=== PATIENT | female | born 1950 | race Hispanic/Latino ===

== ENCOUNTER → 2018-10-09 | Outpatient (CLI) | payer OTHER | END | disposition home or self-care (01) | LOC: OIH 12:24 | PROVIDERS: ATTEND Internal Medicine | DX: Z13.6 Encounter for screening for cardiovascular disorders (principal) | CPT/HCPCS: 75571 ==

== ENCOUNTER 2020-10-01 07:16 | Day surgery (SDC) | payer MEDICARE ==
[2020-09-28 12:13] LABS: BASOPHILS % (AUTO) 0.6 % (0.0-5.0); EOSINOPHILS % (AUTO) 3.1 % (0.0-8.0); HEMATOCRIT 41.8 % (36-48); LYMPHOCYTES % (AUTO) 28.3 % (21.0-51.0); MEAN CORPUSCULAR HEMOGLOBIN 30.2 pg (27.0-33.0); MEAN CORPUSCULAR VOLUME 91.5 fL (79-99); MONOCYTES % (AUTO) 8.9 % (3.0-13.0); NEUTROPHILS % (AUTO) 58.8 % (40.0-77.0); PLATELET COUNT (AUTO) 294 K/uL (130-400); RED BLOOD CELL COUNT(AUTO) 4.57 MIL/uL (4.00-5.50); RED CELL DISTRIBUTION WIDTH 13.5 % (11.0-15.5); WHITE BLOOD COUNT (AUTO) 6.9 K/uL (4.8-10.8)
[2020-09-28 12:27] LABS: CREATININE 0.8 mg/dL (0.5-1.5); POTASSIUM 4.2 mmol/L (3.5-5.1)
[2020-10-01] VITALS (16 sets, daily range): BP systolic 105–137; BP diastolic 38–74
[~2020-10-01] VITALS: Ht 154.9 cm; Wt 60.0 kg
[~2020-10-01 07:16] MED LIST: AMLO-511 PO; ROSU20TA31 PO; TAMS-1 PO; [UNRECOGNIZED DRUG - CODE] PO; prevagen PO; vitamin d3 PO
[2020-10-01] MEDS: CEFTRIAXONE 1G VIAL IVP SCH ×3 (07:30→12:31)
[2020-10-01] MEDS ORDERED: LACTATED RINGERS 1000ML 1,000 ML IV ONE (07:31)
[2020-10-01] MEDS ORDERED: IOHEXOL-350 50ML VIAL IV ONE (07:54)
[2020-10-01] MEDS ORDERED: ONDANSETRON 4MG INJ ONE (09:38)
[2020-10-01] MEDS ORDERED: GLYCOPYRROLATE 1 MG/5 ML SYRINGE ONE (09:38)
[2020-10-01] MEDS ORDERED: SUCCINYLCHOLINE 200MG/10ML SYR ONE ×2 (09:38→09:39)
[2020-10-01] MEDS ORDERED: NEOSTIGMINE 5MG/5ML SYR IV ONE (09:38)
[2020-10-01] MEDS ORDERED: LIDOCAINE PF 100MG/5ML (2%) SYRINGE 5ML ONE ×2 (09:38→09:39)
[2020-10-01] MEDS ORDERED: DEXAMETHASONE SOD PHOSPHATE 10MG/ML 1ML VIAL ONE (09:38)
[2020-10-01] MEDS ORDERED: PROPOFOL 10 MG/ML 20ML VIAL IV ONE (09:38)
[2020-10-01] MEDS ORDERED: FENTANYL CITRATE PF 50 MCG/1 ML 2ML VIAL ONE (09:39)
[2020-10-01] MEDS ORDERED: ROCURONIUM 10MG/1ML SYR 10 MG/ML ML ONE (09:39)
[2020-10-01] MEDS: OPIUM/BELLADONNA ALKALOIDS 1 EACH SUPP.RECT RC ONE ×2 (10:02→10:50)
[2020-10-01] MEDS ORDERED: MEPERIDINE-PF 25 MG/ML SYG ONE (11:38)
[2020-10-01] MEDS ORDERED: PHENAZOPYRIDINE HCL 200 MG TABLET ONE (12:13)
== END 2020-10-01 12:50 | disposition home or self-care (01) ==
LOC: DAH 07:16
PROVIDERS: ATTEND Urology
DX: N13.2 Hydronephrosis with renal and ureteral calculous obstruction (principal); Z20.822 Contact with and (suspected) exposure to COVID-19; I10 Essential (primary) hypertension; Z90.710 Acquired absence of both cervix and uterus; Z90.89 Acquired absence of other organs; Z98.891 History of uterine scar from previous surgery; Z79.899 Other long term (current) drug therapy
CPT/HCPCS: 36415; 52356; 74018; 80048; 82360; 85025; A4215; A4221; A4222; A4223; A4344; A4358; A4657; A4663; A5113; A6260; C1758 ×2; C1769; C2617; C9803; J0330 ×2; J0696; J1100; J2001 ×2; J2175; J2405; J2704; J2710; J3010; J3490; J7120 ×2; U0003; 51702; 81001; 87088; 96372; Q9967

== ENCOUNTER 2020-10-01 16:24 | Emergency (ER) | payer MEDICARE ==
[2020-10-01 16:54] LABS: BILIRUBIN,URINE NEGATIVE (NEGATIVE); GLUCOSE, URINE (UA) 100 mg/dL (NEGATIVE); KETONES,URINE 5 mg/dL (NEGATIVE); LEUKOCYTE ESTERASE ,URINE SMALL (NEGATIVE); NITRATE,URINE POSITIVE (NEGATIVE); OCCULT BLOOD,URINE LARGE (NEGATIVE); PROTEIN,URINE >=300 mg/dL (NEGATIVE)
[2020-10-01 16:55] LABS: APPEARANCE,URINE CLOUDY (CLEAR); COLOR,URINE DARK YELLOW (YELLOW)
[2020-10-01 17:21] LABS: BACTERIA,URINE Few /HPF (None Seen); RBC,URINE >100 /HPF (0-1); SQUAMOUS EPITHELIAL CELL,UR None Seen /HPF (0-2)
[2020-10-01] MEDS ORDERED: CEFTRIAXONE SODIUM 1 GM ONE ×2 (17:28→17:40)
[2020-10-01] MEDS ORDERED: LIDOCAINE HCL-MPF 1% 2ML VIAL ONE ×2 (17:29→17:40)
== END 2020-10-01 18:00 | disposition home or self-care (01) ==
LOC: EDH 16:24
DX: N30.90 Cystitis, unspecified without hematuria (principal); R33.0 Drug induced retention of urine; I10 Essential (primary) hypertension; E78.00 Pure hypercholesterolemia, unspecified; Z88.6 Allergy status to analgesic agent
CPT/HCPCS: 51702; 81001; 87088; 96372; 99284; J0696; J3490

== ENCOUNTER → 2025-01-20 | Outpatient (CLI) | payer MEDICARE ==
[~2025-01-20] MED LIST changes: -ROSU20TA31 PO; +ROSU20TA98 PO; -TAMS-1 PO; +TAMS-55 PO; -[UNRECOGNIZED DRUG - CODE] PO
--- NOTE | 2025-01-20 10:21 | HMCIMG ---
DOUBLE CONTRAST UPPER GI SERIES: Finding: The study was performed using provocative maneuvers After swallowing effervescent crystal and thick barium, there is no definite intrinsic or extrinsic lesion seen in the esophagus. There is a small hiatal hernia with grade 2 esophageal reflux The stomach is normal in size, shape, and configuration. The rugal folds appear to be normal. The duodenal bulb, duodenal sweep, and upper jejunum appear to be normal. Fluoroscopy time: 1.4 minutes IMPRESSION: Small hiatal hernia with grade 2 esophageal reflux Otherwise NORMAL DOUBLE CONTRAST UPPER GI SERIES.
== END | disposition home or self-care (01) ==
LOC: RAH 09:31
PROVIDERS: ATTEND Internal Medicine
DX: K44.9 Diaphragmatic hernia without obstruction or gangrene (principal); K21.9 Gastro-esophageal reflux disease without esophagitis; R10.10 Upper abdominal pain, unspecified; R12 Heartburn
CPT/HCPCS: 74240